=== PATIENT | male | born 1985 ===

== ENCOUNTER 2020-08-10 18:53 | Inpatient (IN) | payer MEDICAID ==
[~2020-08-10] VITALS: Ht 180.3 cm; Wt 71.3 kg
[2020-08-10] MEDS ORDERED: ONDANSETRON ODT 4 MG PO PRN (20:00)
[2020-08-10] MEDS ORDERED: POLYETHYLENE GLYCOL 17 GM PACKET PO PRN (20:00)
[2020-08-10] MEDS ORDERED: BISACODYL 10 MG SUPP PR PRN (20:00)
[2020-08-10] MEDS ORDERED: DOCUSATE 100 MG CAPSULE PO PRN (20:00)
[2020-08-10] MEDS ORDERED: PLEASE ENTER HEIGHT AND WEIGHT MC SCH (21:00)
[2020-08-10] MEDS ORDERED: PLEASE ENTER ALLERGIES MC SCH ×2 (21:00→22:30)
[2020-08-10 21:40] VITALS: BP 99/61
[2020-08-10] MEDS: ACETAMINOPHEN 325 MG TABLET PO PRN (22:33)
[2020-08-10 22:38] VITALS: BP 99/61
[2020-08-11 00:47] LABS: MICROSCOPIC NOT IND
[2020-08-11] MEDS: IBUPROFEN 200 MG TABLET PO PRN ×4 (01:22→20:41)
[2020-08-11] MEDS ORDERED: ORAJEL 7GM TUBE MM PRN (01:30)
[2020-08-11 07:40] VITALS: BP 117/78
[2020-08-11 07:43] LABS: BASOPHILS % (AUTO) 1 % (0-1); EOSINOPHILS % (AUTO) 3 % (1-7); LYMPHOCYTES % (AUTO) 23 % (22-44); MEAN CORPUSCULAR HEMOGLOBIN 30.2 pg (27.5-34.5); MEAN CORPUSCULAR HGB CONC 33.6 g/dL (33.2-36.2); MEAN PLATELET VOLUME 8.6 fL (7.4-10.4); MONOCYTES % (AUTO) 10 % (2-9); NEUTROPHILS % (AUTO) 62 % (42-75); PLATELET COUNT 177 x10^3/uL (130-400); RED BLOOD COUNT 4.07 x10^6/uL (4.38-5.82); RED CELL DISTRIBUTION WIDTH 13.6 % (9.4-14.8)
[2020-08-11 07:49] LABS: MD NO
[2020-08-11 08:20] LABS: ALBUMIN 3.4 g/dL (3.4-5.0); ALKALINE PHOSPHATASE 45 U/L (45-117); BILIRUBIN,TOTAL 0.5 mg/dL (0.2-1.0); CHOL/HDL RATIO 2.2; CHOLESTEROL, TOTAL 128 mg/dL (140-239); FREE T4 (FREE THYROXINE) 0.99 ng/dL (0.76-1.46); HDL CHOL % 45 % (26-37); HDL CHOLESTEROL (DIRECT) 57 mg/dL (40-60); LDL CHOLESTEROL,CALCULATED 56 mg/dL (54-169); TOTAL PROTEIN 6.1 g/dL (6.4-8.2); TRIGLYCERIDES 74 mg/dL (50-200); VLDL CHOLESTEROL 15 mg/dL (0-25)
[2020-08-11 08:24] LABS: ALANINE AMINOTRANSFERASE 52 U/L (12-78); CALCIUM 8.7 mg/dL (8.5-10.1)
[2020-08-11 08:36] LABS: ANION GAP 4 mmol/L (5-15); CHLORIDE 108 mmol/L (98-107)
[2020-08-11] MEDS: NICOTINE 7 MG/24 HR PATCH.TD24 TD SCH (08:42)
[2020-08-11] MEDS: HYDROXYZINE PAMOATE 50MG CAP PO PRN (17:45)
[2020-08-11] MEDS: ACETAMINOPHEN 325 MG TABLET PO PRN (17:45)
[2020-08-11 19:35] VITALS: BP 150/94
[2020-08-11] MEDS: OLANZAPINE 5 MG TABLET PO SCH (20:41)
[2020-08-11] MEDS ORDERED: AMOXICILLIN 500 MG CAPSULE PO SCH (21:00)
[2020-08-12 07:47] VITALS: BP 98/66
[2020-08-12] MEDS: IBUPROFEN 200 MG TABLET PO PRN (08:53)
[2020-08-12] MEDS: AMOXICILLIN 500 MG CAPSULE PO SCH ×2 (08:54→20:15)
[2020-08-12] MEDS: NICOTINE 7 MG/24 HR PATCH.TD24 TD SCH (08:55)
[2020-08-12] MEDS ORDERED: FLUOXETINE 10 MG CAP PO SCH (09:00)
[2020-08-12] MEDS: HYDROXYZINE PAMOATE 50MG CAP PO PRN (10:36)
[2020-08-12] MEDS ORDERED: TRAZ50TA66 PO (11:29)
[2020-08-12] MEDS ORDERED: ARIP5TAB13 PO (11:29)
[2020-08-12] MEDS: IBUPROFEN 800 MG TABLET PO PRN (17:33)
[2020-08-12 19:24] VITALS: BP 106/72
[2020-08-12] MEDS: OLANZAPINE 5 MG TABLET PO SCH (20:14)
[2020-08-13 07:48] VITALS: BP 99/65
[2020-08-13] MEDS: FLUOXETINE 10 MG CAP PO SCH (09:12)
[2020-08-13] MEDS: AMOXICILLIN 500 MG CAPSULE PO SCH ×2 (09:12→21:03)
[2020-08-13] MEDS: IBUPROFEN 800 MG TABLET PO PRN ×2 (09:12→15:20)
[2020-08-13] MEDS: NICOTINE 7 MG/24 HR PATCH.TD24 TD SCH (09:13)
[2020-08-13] MEDS: HYDROXYZINE PAMOATE 50MG CAP PO PRN (12:29)
[2020-08-13] MEDS: ACETAMINOPHEN 325 MG TABLET PO PRN ×2 (12:29→21:04)
[2020-08-13 19:38] VITALS: BP 120/76
[2020-08-13] MEDS: OLANZAPINE 5 MG TABLET PO SCH (21:04)
[2020-08-14 08:08] VITALS: BP 127/87
[2020-08-14] MEDS: AMOXICILLIN 500 MG CAPSULE PO SCH ×2 (08:32→20:24)
[2020-08-14] MEDS: NICOTINE 7 MG/24 HR PATCH.TD24 TD SCH (08:32)
[2020-08-14] MEDS: IBUPROFEN 800 MG TABLET PO PRN ×2 (08:32→20:23)
[2020-08-14] MEDS: FLUOXETINE 10 MG CAP PO SCH (08:32)
[2020-08-14] MEDS: HYDROXYZINE PAMOATE 50MG CAP PO PRN ×3 (08:32→20:30)
[2020-08-14] MEDS ORDERED: NICO-485 TD (14:49)
[2020-08-14] MEDS ORDERED: FLUO10CA15 PO (14:49)
[2020-08-14] MEDS ORDERED: HYDR50CA2 PO (14:49)
[2020-08-14] MEDS ORDERED: AMOX-291 PO (14:49)
[2020-08-14] MEDS ORDERED: OLAN5TAB9 PO (14:49)
[2020-08-14] MEDS: ACETAMINOPHEN 325 MG TABLET PO PRN (15:38)
[2020-08-14 19:44] VITALS: BP 118/76
[2020-08-14] MEDS: OLANZAPINE 5 MG TABLET PO SCH (20:23)
[2020-08-15 07:53] VITALS: BP 125/85
[2020-08-15] MEDS: AMOXICILLIN 500 MG CAPSULE PO SCH (07:58)
[2020-08-15] MEDS: HYDROXYZINE PAMOATE 50MG CAP PO PRN (07:58)
[2020-08-15] MEDS: FLUOXETINE 10 MG CAP PO SCH (07:59)
[2020-08-15] MEDS: NICOTINE 7 MG/24 HR PATCH.TD24 TD SCH (08:00)
[2020-08-15] MEDS: IBUPROFEN 800 MG TABLET PO PRN (08:34)
== END 2020-08-15 09:45 | disposition home or self-care (01) | DRG 751 ==
LOC: 3E 20:30
PROVIDERS: ADMIT Psychiatry & Neurology Psychosomatic Medicine; ATTEND Psychiatry & Neurology Psychosomatic Medicine
DX: F33.2 Major depressive disorder, recurrent severe without psychotic features (principal); F15.20 Other stimulant dependence, uncomplicated; F17.200 Nicotine dependence, unspecified, uncomplicated; F20.0 Paranoid schizophrenia; K05.10 Chronic gingivitis, plaque induced; G47.00 Insomnia, unspecified; Z79.899 Other long term (current) drug therapy
CPT/HCPCS: 36415; 71045; 80053; 80061; 81003; 82607; 84439; 84443; 85025